=== PATIENT | female | born 1965 | race African-American/Black ===

== ENCOUNTER 2022-10-17 11:28 | Emergency (ER) | payer SELFPAY ==
[~2022-10-17] VITALS: Ht 165.1 cm; Wt 86.0 kg
[2022-10-17] MEDS ORDERED: LOSARTAN POTASSIUM 50 MG TABLET PO ONE (13:00)
[2022-10-17] MEDS ORDERED: IBUPROFEN 600MG TABLET PO STA (13:00)
[2022-10-17 13:38] VITALS: BP 186/92
[2022-10-17] MEDS ORDERED: IBUP-2029 PO (15:09)
[2022-10-17] MEDS ORDERED: LOSA50TA41 PO (15:09)
[2022-10-17] MEDS ORDERED: METF-414 PO (15:09)
== END 2022-10-17 15:54 | disposition home or self-care (01) ==
LOC: ER 12:30
DX: S70.02XA Contusion of left hip, initial encounter (principal); M25.552 Pain in left hip; V03.99XA Pedestrian with other conveyance injured in collision with car, pick-up truck or van, unspecified whether traffic or nontraffic accident, initial encounter; Y93.89 Activity, other specified; Y92.89 Other specified places as the place of occurrence of the external cause; Y99.8 Other external cause status; I10 Essential (primary) hypertension; E11.9 Type 2 diabetes mellitus without complications; Z79.899 Other long term (current) drug therapy
CPT/HCPCS: 72100; 73502; 99284